=== PATIENT | male | born 1945 | race Caucasian/White ===

== ENCOUNTER → 2020-08-29 09:28 | Outpatient (BNVA) | payer OTHER, SELFPAY | PROVIDERS: PCP Family Medicine; Referring Provider Family Medicine; Visit Provider Anesthesiology Pain Medicine | DX: M25.511 Pain in right shoulder (principal); M25.512 Pain in left shoulder; M19.90 Unspecified osteoarthritis, unspecified site; S78.119A Complete traumatic amputation at level between unspecified hip and knee, initial encounter; X58.XXXA Exposure to other specified factors, initial encounter; Z79.891 Long term (current) use of opiate analgesic | CPT/HCPCS: 99205 ==

== ENCOUNTER → 2020-09-30 09:38 | Outpatient (BNVA) | payer OTHER, SELFPAY | PROVIDERS: PCP Family Medicine; Visit Provider Anesthesiology Pain Medicine | DX: M19.90 Unspecified osteoarthritis, unspecified site (principal); S78.119A Complete traumatic amputation at level between unspecified hip and knee, initial encounter; M54.9 Dorsalgia, unspecified; M25.511 Pain in right shoulder; M25.512 Pain in left shoulder; Z79.891 Long term (current) use of opiate analgesic | CPT/HCPCS: 99213 ==

== ENCOUNTER → 2020-11-05 10:18 | Outpatient (BNVA) | payer OTHER, SELFPAY | PROVIDERS: PCP Family Medicine; Visit Provider Anesthesiology Pain Medicine | DX: M19.90 Unspecified osteoarthritis, unspecified site (principal); S78.119A Complete traumatic amputation at level between unspecified hip and knee, initial encounter; X58.XXXA Exposure to other specified factors, initial encounter; M54.9 Dorsalgia, unspecified; M25.511 Pain in right shoulder; M25.512 Pain in left shoulder; Z79.899 Other long term (current) drug therapy; Z79.891 Long term (current) use of opiate analgesic | CPT/HCPCS: 99214 ==

== ENCOUNTER 2020-12-03 11:39 | Outpatient (CLI) | payer OTHER, SELFPAY | END 2020-12-03 11:40 | disposition home or self-care (01) | LOC: WOUND 11:41 | PROVIDERS: PCP Family Medicine; Visit Provider Thoracic Surgery (Cardiothoracic Vascular Surgery) | DX: E11.622 Type 2 diabetes mellitus with other skin ulcer (principal); L97.111 Non-pressure chronic ulcer of right thigh limited to breakdown of skin; L97.121 Non-pressure chronic ulcer of left thigh limited to breakdown of skin; I96 Gangrene, not elsewhere classified; Z89.611 Acquired absence of right leg above knee; Z87.891 Personal history of nicotine dependence | CPT/HCPCS: 97597; G0463 ==

== ENCOUNTER → 2020-12-05 09:33 | Outpatient (BNVA) | payer OTHER, SELFPAY | PROVIDERS: PCP Family Medicine; Visit Provider Anesthesiology Pain Medicine | DX: M19.90 Unspecified osteoarthritis, unspecified site (principal); S78.119A Complete traumatic amputation at level between unspecified hip and knee, initial encounter; X58.XXXA Exposure to other specified factors, initial encounter; M54.9 Dorsalgia, unspecified; M25.511 Pain in right shoulder; M25.512 Pain in left shoulder; Z79.899 Other long term (current) drug therapy; Z79.891 Long term (current) use of opiate analgesic | CPT/HCPCS: 99214 ==

== ENCOUNTER 2020-12-18 13:57 | Outpatient (CLI) | payer OTHER, SELFPAY | END 2020-12-18 13:58 | disposition home or self-care (01) | LOC: WOUND 13:57 | PROVIDERS: PCP Family Medicine; Visit Provider Thoracic Surgery (Cardiothoracic Vascular Surgery) | DX: E11.622 Type 2 diabetes mellitus with other skin ulcer (principal); L97.822 Non-pressure chronic ulcer of other part of left lower leg with fat layer exposed; Z89.612 Acquired absence of left leg above knee | CPT/HCPCS: 11042 ==

== ENCOUNTER 2020-12-25 13:18 | Outpatient (CLI) | payer OTHER, SELFPAY | END 2020-12-25 13:19 | disposition home or self-care (01) | LOC: WOUND 13:19 | PROVIDERS: PCP Family Medicine; Visit Provider Nurse Practitioner Family | DX: E11.622 Type 2 diabetes mellitus with other skin ulcer (principal); L97.822 Non-pressure chronic ulcer of other part of left lower leg with fat layer exposed; Z89.612 Acquired absence of left leg above knee | CPT/HCPCS: G0463 ==

== ENCOUNTER → 2021-01-02 10:30 | Outpatient (BNVA) | payer OTHER, SELFPAY | PROVIDERS: PCP Family Medicine; Visit Provider Anesthesiology Pain Medicine | DX: M19.90 Unspecified osteoarthritis, unspecified site (principal); S78.119A Complete traumatic amputation at level between unspecified hip and knee, initial encounter; M54.9 Dorsalgia, unspecified; M25.511 Pain in right shoulder; M25.512 Pain in left shoulder; X58.XXXA Exposure to other specified factors, initial encounter; Z79.899 Other long term (current) drug therapy; Z79.891 Long term (current) use of opiate analgesic | CPT/HCPCS: 99214 ==

== ENCOUNTER 2021-01-02 13:08 | Outpatient (CLI) | payer OTHER, SELFPAY | END 2021-01-02 13:09 | disposition home or self-care (01) | LOC: WOUND 13:09 | PROVIDERS: PCP Family Medicine; Visit Provider Thoracic Surgery (Cardiothoracic Vascular Surgery) | DX: E11.622 Type 2 diabetes mellitus with other skin ulcer (principal); L97.822 Non-pressure chronic ulcer of other part of left lower leg with fat layer exposed; Z89.612 Acquired absence of left leg above knee | CPT/HCPCS: 11042 ==

== ENCOUNTER 2021-01-09 13:14 | Outpatient (CLI) | payer OTHER, SELFPAY | END 2021-01-09 13:15 | disposition home or self-care (01) | LOC: WOUND 13:15 | PROVIDERS: PCP Family Medicine; Visit Provider Nurse Practitioner Family | DX: E11.622 Type 2 diabetes mellitus with other skin ulcer (principal); L97.821 Non-pressure chronic ulcer of other part of left lower leg limited to breakdown of skin; Z89.612 Acquired absence of left leg above knee | CPT/HCPCS: 11042 ==

== ENCOUNTER 2021-01-21 13:32 | Outpatient (CLI) | payer OTHER, SELFPAY | END 2021-01-21 13:33 | disposition home or self-care (01) | LOC: WOUND 13:33 | PROVIDERS: PCP Family Medicine; Visit Provider Thoracic Surgery (Cardiothoracic Vascular Surgery) | DX: E11.622 Type 2 diabetes mellitus with other skin ulcer (principal); L97.821 Non-pressure chronic ulcer of other part of left lower leg limited to breakdown of skin; Z89.612 Acquired absence of left leg above knee | CPT/HCPCS: 97597 ==

== ENCOUNTER 2021-01-28 13:36 | Outpatient (CLI) | payer OTHER, SELFPAY | END 2021-01-28 13:37 | disposition home or self-care (01) | LOC: WOUND 13:37 | PROVIDERS: PCP Family Medicine; Visit Provider Thoracic Surgery (Cardiothoracic Vascular Surgery) | DX: E11.621 Type 2 diabetes mellitus with foot ulcer (principal); L97.822 Non-pressure chronic ulcer of other part of left lower leg with fat layer exposed; Z89.612 Acquired absence of left leg above knee | CPT/HCPCS: 11042 ==

== ENCOUNTER → 2021-01-30 09:23 | Outpatient (BNVA) | payer OTHER, SELFPAY | PROVIDERS: PCP Family Medicine; Visit Provider Anesthesiology Pain Medicine | DX: M19.90 Unspecified osteoarthritis, unspecified site (principal); S78.119A Complete traumatic amputation at level between unspecified hip and knee, initial encounter; X58.XXXA Exposure to other specified factors, initial encounter; M54.9 Dorsalgia, unspecified; M25.511 Pain in right shoulder; M25.512 Pain in left shoulder; Z79.891 Long term (current) use of opiate analgesic | CPT/HCPCS: 99214 ==

== ENCOUNTER 2021-02-18 13:15 | Outpatient (CLI) | payer OTHER, SELFPAY | END 2021-02-18 13:16 | disposition home or self-care (01) | LOC: WOUND 13:15 | PROVIDERS: PCP Family Medicine; Visit Provider Thoracic Surgery (Cardiothoracic Vascular Surgery) | DX: E11.622 Type 2 diabetes mellitus with other skin ulcer (principal); L97.822 Non-pressure chronic ulcer of other part of left lower leg with fat layer exposed; Z89.612 Acquired absence of left leg above knee | CPT/HCPCS: 97597 ==

== ENCOUNTER 2021-02-25 12:56 | Outpatient (CLI) | payer OTHER, SELFPAY | END 2021-02-25 12:57 | disposition home or self-care (01) | LOC: WOUND 12:57 | PROVIDERS: PCP Family Medicine; Visit Provider Thoracic Surgery (Cardiothoracic Vascular Surgery) | DX: E11.622 Type 2 diabetes mellitus with other skin ulcer (principal); L97.822 Non-pressure chronic ulcer of other part of left lower leg with fat layer exposed; Z89.612 Acquired absence of left leg above knee | CPT/HCPCS: 97597 ==

== ENCOUNTER → 2021-02-27 10:59 | Outpatient (BNVA) | payer OTHER, SELFPAY | PROVIDERS: PCP Family Medicine; Visit Provider Anesthesiology Pain Medicine | DX: M19.90 Unspecified osteoarthritis, unspecified site (principal); S78.119A Complete traumatic amputation at level between unspecified hip and knee, initial encounter; M54.2 Cervicalgia; M54.9 Dorsalgia, unspecified; M25.511 Pain in right shoulder; M25.512 Pain in left shoulder; X58.XXXA Exposure to other specified factors, initial encounter; Z79.899 Other long term (current) drug therapy; Z79.891 Long term (current) use of opiate analgesic | CPT/HCPCS: 99214 ==

== ENCOUNTER 2021-03-11 13:09 | Outpatient (CLI) | payer OTHER, SELFPAY | END 2021-03-11 13:10 | disposition home or self-care (01) | LOC: WOUND 13:09 | PROVIDERS: PCP Family Medicine; Visit Provider Thoracic Surgery (Cardiothoracic Vascular Surgery) | DX: E11.622 Type 2 diabetes mellitus with other skin ulcer (principal); L97.822 Non-pressure chronic ulcer of other part of left lower leg with fat layer exposed; Z89.612 Acquired absence of left leg above knee | CPT/HCPCS: 97597 ==

== ENCOUNTER → 2021-03-26 09:04 | Outpatient (BNVA) | payer OTHER, SELFPAY | PROVIDERS: PCP Family Medicine; Visit Provider Anesthesiology Pain Medicine | DX: M54.2 Cervicalgia (principal); M25.511 Pain in right shoulder; M25.512 Pain in left shoulder; M54.9 Dorsalgia, unspecified; M19.90 Unspecified osteoarthritis, unspecified site; S78.119A Complete traumatic amputation at level between unspecified hip and knee, initial encounter; X58.XXXA Exposure to other specified factors, initial encounter; Z79.891 Long term (current) use of opiate analgesic | CPT/HCPCS: 99214 ==

== ENCOUNTER 2021-04-01 13:03 | Outpatient (CLI) | payer OTHER, SELFPAY | END 2021-04-01 13:04 | disposition home or self-care (01) | LOC: WOUND 13:04 | PROVIDERS: PCP Family Medicine; Visit Provider Thoracic Surgery (Cardiothoracic Vascular Surgery) | DX: E11.622 Type 2 diabetes mellitus with other skin ulcer (principal); L97.822 Non-pressure chronic ulcer of other part of left lower leg with fat layer exposed; Z89.612 Acquired absence of left leg above knee | CPT/HCPCS: 97597 ==

== ENCOUNTER 2021-04-16 13:09 | Outpatient (CLI) | payer OTHER, SELFPAY | END 2021-04-16 13:10 | disposition home or self-care (01) | LOC: WOUND 13:10 | PROVIDERS: PCP Family Medicine; Visit Provider Thoracic Surgery (Cardiothoracic Vascular Surgery) | DX: Z09 Encounter for follow-up examination after completed treatment for conditions other than malignant neoplasm (principal); Z87.891 Personal history of nicotine dependence | CPT/HCPCS: G0463 ==

== ENCOUNTER → 2021-04-23 10:06 | Outpatient (BNVA) | payer OTHER, SELFPAY | PROVIDERS: PCP Family Medicine; Visit Provider Anesthesiology Pain Medicine | DX: M54.2 Cervicalgia (principal); M25.511 Pain in right shoulder; M25.512 Pain in left shoulder; M19.90 Unspecified osteoarthritis, unspecified site; M79.601 Pain in right arm; M79.602 Pain in left arm; S78.119A Complete traumatic amputation at level between unspecified hip and knee, initial encounter; X58.XXXA Exposure to other specified factors, initial encounter; Z79.891 Long term (current) use of opiate analgesic | CPT/HCPCS: 99214 ==

== ENCOUNTER → 2021-05-21 10:11 | Outpatient (BNVA) | payer OTHER, SELFPAY | PROVIDERS: PCP Family Medicine; Visit Provider Anesthesiology Pain Medicine | DX: M54.2 Cervicalgia (principal); M25.511 Pain in right shoulder; M25.512 Pain in left shoulder; M19.90 Unspecified osteoarthritis, unspecified site; S78.119A Complete traumatic amputation at level between unspecified hip and knee, initial encounter; X58.XXXA Exposure to other specified factors, initial encounter; Z79.891 Long term (current) use of opiate analgesic | CPT/HCPCS: 99213; 99214 ==

== ENCOUNTER → 2021-06-18 10:31 | Outpatient (BNVA) | payer OTHER, SELFPAY | PROVIDERS: PCP Family Medicine; Visit Provider Anesthesiology Pain Medicine | DX: G89.29 Other chronic pain (principal); M19.90 Unspecified osteoarthritis, unspecified site; M54.2 Cervicalgia; S78.112A Complete traumatic amputation at level between left hip and knee, initial encounter; S78.111A Complete traumatic amputation at level between right hip and knee, initial encounter; X58.XXXA Exposure to other specified factors, initial encounter; M25.511 Pain in right shoulder; M25.512 Pain in left shoulder; M79.601 Pain in right arm; M79.602 Pain in left arm; Z79.891 Long term (current) use of opiate analgesic | CPT/HCPCS: 99214 ==

== ENCOUNTER 2021-06-21 10:21 | Emergency (ER) | payer OTHER, MEDICARE, SELFPAY ==
[2021-06-21 10:24] VITALS: BP 133/65; PULSE 62; RESP 18; TEMP 37.4; O2SAT 94
--- NOTE | 2021-06-21 10:36 | W.ED.SKABFB ---
HPI - Skin/Abscess/Foreign Bdy General: Chief complaint: Skin/Abscess/Foreign Body Stated complaint: RIGHT STUMP CELLULITIS Time Seen by Provider: 06/21/21 10:28 History of Present Illness: HPI narrative: 62-year-old male presents emergency room with complaint of irritation to his right femoral stump. 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 He sees wound clinic on a regular basis as well as a pain clinic. He has noticed some redness and inflammation at the anterior distal portion of that stump. He does not use any prosthetics. He has a significant breakdown of the skin on the left stump but he actually states the right stump is bothering him more. MD complaint: other Onset (ago): day(s) Location: LUE and RUE Severity: mild Quality: aching and dull Pain Consistency: intermittent Relieving factors: none Exacerbating factors: none Context: other (Previous bilateral proximal femur amputations secondary to trauma) Associated symptoms: Deny chills, cough, fever(s), itching, myalgias, nausea, rigidity, short of breath or vomiting Treatments prior to arrival: none Review of Systems Const: Denies: fever(s) or chills ENMT: Denies: throat pain, ear or mastoid pain, nasal discharge or nasal congestion Card: Denies: chest pain, edema, dyspnea on exertion or orthopnea Resp: Denies: dyspnea, productive cough or non-productive cough GI: Denies: nausea or vomiting : Denies: flank pain, dysuria, urinary frequency or urinary urgency Skin/Breast: Denies: rash or pruritus Physical Exam Const: COMMON NORMALS: no acute distress GENERAL APPEARANCE: cooperative and comfortable ORIENTATION/CONSCIOUSNESS: Yes awake, Yes oriented to person, Yes oriented to place and Yes oriented to time HENMT: COMMON NORMALS: normocephalic, atraumatic and hearing grossly normal bilaterally HEAD & SCALP: normocephalic and atraumatic Neck/C-Spine: COMMON NORMALS: no JVD Resp: COMMON NORMALS: normal respiratory effort, No retractions, No use of accessory muscles and clear to auscultation bilaterally AUSCULTATION: clear to auscultation bilaterally Cardio: COMMON NORMALS: no JVD, regular rate, regular rhythm and No murmurs present (Cardio) RATE: regular rate RHYTHM: regular rhythm GI: COMMON NORMALS: Soft to palpation and No hepatosplenomegaly present AUSCULTATION: Yes normoactive bowel sounds PALPATION: Yes Soft to palpation, No Tenderness to palpation present (GI), No Guarding due to palpation present (GI) and Yes No hepatosplenomegaly present Extremity: NARRATIVE EXTREMITY EXAM: Patient has significant abrasion approximately quarter sized on the anterior lateral portion of the left femoral stump there are some mild erythema and a small central eschar on the anterior portion of the right femoral stump with no drainage slight induration very increased warmth to the touch and erythema. Neuro: SENSORIUM/ORIENTATION: Yes oriented to person, Yes oriented to place and Yes oriented to time Skin: COMMON NORMALS: no rashes or lesions noted GENERAL SKIN EXAM: no rashes or lesions noted Course Vital Signs: Vital signs: Vital Signs Temperature 99.4 F 06/21/21 10:24 Pulse Rate 62 06/21/21 10:24 Respiratory Rate 18 06/21/21 10:24 Blood Pressure 133/65 06/21/21 10:24 Pulse Oximetry 94 06/21/21 10:24 MDM - Skin/Abscess/Foreign Bdy MDM Narrative: Medical decision making narrative: Labs reviewed discussed with patient. Will start mupirocin topical follow-up with primary care Lab Data: Labs: Lab Results 06/21/21 06/21/21 10:35 10:35 WBC 16.0 10^3/uL H 10 ^3/uL (4.0-10.0) RBC 4.58 10^6/uL 10^6 /uL (4.1-5.3) Hgb 12.6 g/dL g/dL (11.7-16.6) Hct 38.5 % L % (42.0-52.0) MCV 84.1 fl fl (80-94) MCH 27.5 pg L pg (28.0-34.0) MCHC 32.7 g/dL g/dL (30.0-36.0) RDW 14.6 % % (12.1-15.1) Plt Count 228 10^3/cmm 10^3 /cmm (130-400) MPV 9.3 fL fL (7.4-10.4) Neut % (Auto) 75.9 % % Lymph % (Auto) 10.1 % % [place] % (Auto) 11.8 % % Eos % (Auto) 1.3 % % Baso % (Auto) 0.6 % % Neut # (Auto) 12.10 10^3/uL H 1 0^3/uL (1.8-7.7) Lymph # (Auto) 1.6 10^3/uL 10^3/ uL (0.8-4.8) [place] # (Auto) 1.9 10^3/uL H 10^ 3/uL (0.2-0.9) Eos # (Auto) 0.2 10^3/uL 10^3/ uL (0.0-0.8) Baso # (Auto) 0.1 10^3/uL 10^3/ uL (0.0-0.1) Nucleated RBC % (a uto) 0 % % Nucleated RBCs # 0.0 /100WBC /100W BC Sodium 131 mmol/L L mmol /L (136-145) Potassium 4.4 mmol/L mmol/L (3.5-5.1) Chloride 95 mmol/L L mmol/ L (98-107) Carbon Dioxide 26 mmol/L mmol/L (22-29) Anion Gap 14.4 (5-19) BUN 21 mg/dL mg/dL (8-23) Creatinine 0.6 mg/dL L mg/dL (0.7-1.2) GFR Calculation Not Reportable Glucose 140 mg/dL H mg/dL (65-115) Calculated Osmolal ity 277 mOsm/kg L mOs m/kg (285-295) Calcium 9.4 mg/dL mg/dL (8.5-10.5) Total Bilirubin 0.6 mg/dL mg/dL (0.15-1.2) AST 12 U/L U/L (0-40) ALT 8 U/L U/L (0-41) Alkaline Phosphata se 67 IU/L IU/L (40-130) Total Protein 7.5 g/dL g/dL (6.6-8.7) Albumin 3.9 g/dL g/dL (3.5-5.2) Globulin 3.6 g/dL g/dL (1.3-4.6) Discharge Plan Discharge Patient Disposition: Home Clinical Impression: Cellulitis Condition: Stable Prescriptions: New mupirocin 2 % ointment 1 applic topical DAILY Qty: 22 RF: 0 No Action meloxicam 15 mg tablet 15 mg PO DAILY PRNRF: 0 hydrochlorothiazide 12.5 mg tablet 12.5 mg PO DAILY RF: 0 atenolol 50 mg tablet 50 mg PO DAILY RF: 0 isosorbide mononitrate 60 mg tablet extended release 24 hr 60 mg PO DAILY RF: 0 simvastatin 80 mg tablet 80 mg PO DAILY RF: 0 lisinopril 10 mg tablet 10 mg PO DAILY RF: 0 amlodipine 10 mg tablet 10 mg PO DAILY RF: 0 metformin 500 mg tablet 500 mg PO DAILY RF: 0 clopidogrel 75 mg tablet 75 mg PO DAILY RF: 0 cholecalciferol (vitamin D3) 50 mcg (2,000 unit) capsule 50 mcg PO DAILY RF: 0 aspirin 325 mg tablet,delayed release (DR/EC) 325 mg PO DAILY RF: 0 dexamethasone 1.5 mg (21 tabs) tablets,dose pack See Rx Instructions PO PER PKG DIR Qty: 21 RF: 0 hydrocodone-acetaminophen 10-325 mg tablet 1 tab PO TID PRN (Reason: chronic pain ) 30 Days Qty: 90 RF: 0 Discharge Orders: Discharge ED (Routine); Ordered 06/21/21 Ordered By: Chicho Garsia Referrals: Linda Escalante MD [Primary Care Provider] - Discharge Diet: Usual diet Discharge Activity: Increase activity as tolerated Patient Instructions: Opioid Safety Activity Restrictions/Additional Instructions: Change dressing on wounds daily Coding Level of Care Code ED Host/Hostess Head for Speedyg Fwd Exam Detailed
[2021-06-21 10:47] LABS: Basophils # 0.1 10^3/uL (0.0-0.1); Basophils % 0.6 %; Eosinophils # 0.2 10^3/uL (0.0-0.8); Eosinophils % 1.3 %; Hematocrit 38.5 % (42.0-52.0); Hemoglobin 12.6 g/dL (11.7-16.6); Lymphocytes # 1.6 10^3/uL (0.8-4.8); Lymphocytes % 10.1 %; Mean Corpuscular HGB Conc 32.7 g/dL (30.0-36.0); Mean Corpuscular Hemoglobin 27.5 pg (28.0-34.0); Mean Corpuscular Volume 84.1 fl (80-94); Mean Platelet Volume 9.3 fL (7.4-10.4); Monocytes # 1.9 10^3/uL (0.2-0.9); Monocytes % 11.8 %; Neutrophils % 75.9 %; Nucleated Red Blood Cells % 0 %; Platelet Count 228 10^3/cmm (130-400); Red Blood Count 4.58 10^6/uL (4.1-5.3); Red Cell Distribution Width 14.6 % (12.1-15.1)
[2021-06-21 11:05] LABS: Alanine Aminotransferase 8 U/L (0-41); Albumin Level 3.9 g/dL (3.5-5.2); Alkaline Phosphatase 67 IU/L (40-130); Anion Gap 14.4 (5-19); Aspartate Amino Transferase 12 U/L (0-40); Blood Urea Nitrogen 21 mg/dL (8-23); Calcium 9.4 mg/dL (8.5-10.5); Carbon Dioxide 26 mmol/L (22-29); Chloride 95 mmol/L (98-107); Globulin 3.6 g/dL (1.3-4.6); Glucose 140 mg/dL (65-115); Osmolality Calculated 277 mOsm/kg (285-295); Potassium 4.4 mmol/L (3.5-5.1); Sodium 131 mmol/L (136-145); Total Bilirubin 0.6 mg/dL (0.15-1.2); Total Protein 7.5 g/dL (6.6-8.7)
[2021-06-21] MEDS: tetanus-dipt-pertussis 0.5 mL SDV IM (11:14)
[2021-06-21] MEDS: levoFLOXacin 500 mg Tablet PO (12:43)
== END 2021-06-21 15:45 | disposition home or self-care (01) ==
PROVIDERS: Emergency Provider Family Medicine; PCP Family Medicine
DX: L03.115 Cellulitis of right lower limb (principal); Z79.82 Long term (current) use of aspirin; Z79.84 Long term (current) use of oral hypoglycemic drugs; Z79.02 Long term (current) use of antithrombotics/antiplatelets; Z23 Encounter for immunization; Z89.612 Acquired absence of left leg above knee; Z89.611 Acquired absence of right leg above knee; S80.812A Abrasion, left lower leg, initial encounter; X58.XXXA Exposure to other specified factors, initial encounter
CPT/HCPCS: 80053; 85025; 87040; 90471; 90715; 99283

== ENCOUNTER → 2021-07-16 10:24 | Outpatient (BNVA) | payer OTHER, SELFPAY | PROVIDERS: PCP Family Medicine; Visit Provider Anesthesiology Pain Medicine | DX: G89.29 Other chronic pain (principal); M54.50 Low back pain, unspecified; M54.2 Cervicalgia; M25.511 Pain in right shoulder; M25.512 Pain in left shoulder; M19.90 Unspecified osteoarthritis, unspecified site; S78.119A Complete traumatic amputation at level between unspecified hip and knee, initial encounter; W40.8XXA Explosion of other specified explosive materials, initial encounter; Z79.891 Long term (current) use of opiate analgesic | CPT/HCPCS: 99213 ==

== ENCOUNTER → 2021-08-13 10:20 | Outpatient (BNVA) | payer OTHER, SELFPAY | PROVIDERS: PCP Family Medicine; Visit Provider Anesthesiology Pain Medicine | DX: G89.29 Other chronic pain (principal); M54.2 Cervicalgia; M19.90 Unspecified osteoarthritis, unspecified site; S78.119A Complete traumatic amputation at level between unspecified hip and knee, initial encounter; W40.8XXA Explosion of other specified explosive materials, initial encounter; M25.511 Pain in right shoulder; M25.512 Pain in left shoulder; Z79.891 Long term (current) use of opiate analgesic | CPT/HCPCS: 99214 ==

== ENCOUNTER → 2021-09-15 10:00 | Outpatient (BNVA) | payer OTHER, SELFPAY | PROVIDERS: PCP Family Medicine; Visit Provider Anesthesiology Pain Medicine | DX: M54.2 Cervicalgia (principal); M19.90 Unspecified osteoarthritis, unspecified site; S78.111A Complete traumatic amputation at level between right hip and knee, initial encounter; S78.112A Complete traumatic amputation at level between left hip and knee, initial encounter; M25.511 Pain in right shoulder; M25.512 Pain in left shoulder; X58.XXXA Exposure to other specified factors, initial encounter; Z79.891 Long term (current) use of opiate analgesic | CPT/HCPCS: 99214 ==

== ENCOUNTER → 2021-10-13 09:58 | Outpatient (BNVA) | payer OTHER, SELFPAY | PROVIDERS: PCP Family Medicine; Visit Provider Anesthesiology Pain Medicine | DX: M54.2 Cervicalgia (principal); M19.90 Unspecified osteoarthritis, unspecified site; S78.119A Complete traumatic amputation at level between unspecified hip and knee, initial encounter; M25.511 Pain in right shoulder; M25.512 Pain in left shoulder; Z79.899 Other long term (current) drug therapy; Z79.891 Long term (current) use of opiate analgesic | CPT/HCPCS: 99213 ==

== ENCOUNTER → 2021-11-12 09:27 | Outpatient (BNVA) | payer OTHER, SELFPAY | PROVIDERS: PCP Family Medicine; Visit Provider Anesthesiology Pain Medicine | DX: M54.50 Low back pain, unspecified (principal); M19.90 Unspecified osteoarthritis, unspecified site; S78.119A Complete traumatic amputation at level between unspecified hip and knee, initial encounter; M54.2 Cervicalgia; M25.511 Pain in right shoulder; M25.512 Pain in left shoulder; M79.601 Pain in right arm; M79.602 Pain in left arm; X58.XXXA Exposure to other specified factors, initial encounter; Z79.891 Long term (current) use of opiate analgesic; Z79.899 Other long term (current) drug therapy | CPT/HCPCS: 99214 ==

== ENCOUNTER → 2021-12-10 09:43 | Outpatient (BNVA) | payer OTHER, SELFPAY | PROVIDERS: PCP Family Medicine; Visit Provider Anesthesiology Pain Medicine | DX: M54.50 Low back pain, unspecified (principal); M54.2 Cervicalgia; M19.90 Unspecified osteoarthritis, unspecified site; S78.111A Complete traumatic amputation at level between right hip and knee, initial encounter; S78.112A Complete traumatic amputation at level between left hip and knee, initial encounter; M25.511 Pain in right shoulder; M25.512 Pain in left shoulder; W40.8XXA Explosion of other specified explosive materials, initial encounter; Z79.899 Other long term (current) drug therapy; Z79.891 Long term (current) use of opiate analgesic; Z87.891 Personal history of nicotine dependence | CPT/HCPCS: 99214 ==

== ENCOUNTER → 2022-01-07 09:51 | Outpatient (BNVA) | payer OTHER, SELFPAY | PROVIDERS: PCP Family Medicine; Visit Provider Anesthesiology Pain Medicine | DX: M19.90 Unspecified osteoarthritis, unspecified site (principal); S78.119A Complete traumatic amputation at level between unspecified hip and knee, initial encounter; M54.2 Cervicalgia; M25.511 Pain in right shoulder; M25.512 Pain in left shoulder; M79.604 Pain in right leg; M79.605 Pain in left leg; W40.8XXA Explosion of other specified explosive materials, initial encounter; Z79.899 Other long term (current) drug therapy; Z79.891 Long term (current) use of opiate analgesic; Z87.891 Personal history of nicotine dependence | CPT/HCPCS: 99214 ==

== ENCOUNTER → 2022-01-29 10:27 | Outpatient (BNVA) | payer MEDICARE, OTHER, SELFPAY | PROVIDERS: PCP Family Medicine; Visit Provider Nurse Practitioner | DX: R30.0 Dysuria (principal) | CPT/HCPCS: 81000 ==

== ENCOUNTER → 2022-02-04 09:55 | Outpatient (BNVA) | payer MEDICARE, OTHER, SELFPAY | PROVIDERS: PCP Family Medicine; Visit Provider Anesthesiology Pain Medicine | DX: M54.9 Dorsalgia, unspecified (principal); M54.2 Cervicalgia; M19.90 Unspecified osteoarthritis, unspecified site; S78.119A Complete traumatic amputation at level between unspecified hip and knee, initial encounter; M25.511 Pain in right shoulder; M25.512 Pain in left shoulder; M79.601 Pain in right arm; M79.602 Pain in left arm; Z79.899 Other long term (current) drug therapy; Z87.891 Personal history of nicotine dependence; Z79.891 Long term (current) use of opiate analgesic | CPT/HCPCS: 99214 ==

== ENCOUNTER → 2022-03-03 10:18 | Outpatient (BNVA) | payer OTHER, SELFPAY | PROVIDERS: PCP Family Medicine; Visit Provider Anesthesiology Pain Medicine | DX: M25.511 Pain in right shoulder (principal); M25.512 Pain in left shoulder; M54.2 Cervicalgia; M19.90 Unspecified osteoarthritis, unspecified site; M79.601 Pain in right arm; M79.602 Pain in left arm; S78.119A Complete traumatic amputation at level between unspecified hip and knee, initial encounter; Z87.891 Personal history of nicotine dependence; Z79.891 Long term (current) use of opiate analgesic; Z79.899 Other long term (current) drug therapy; Y93.9 Activity, unspecified | CPT/HCPCS: 99214 ==

== ENCOUNTER → 2022-03-25 08:36 | Outpatient (BNVA) | payer OTHER, SELFPAY | PROVIDERS: PCP Family Medicine; Visit Provider Anesthesiology Pain Medicine | DX: M25.511 Pain in right shoulder (principal); M25.512 Pain in left shoulder; M79.601 Pain in right arm; M79.602 Pain in left arm; M54.50 Low back pain, unspecified; M54.2 Cervicalgia; M19.90 Unspecified osteoarthritis, unspecified site; S78.119A Complete traumatic amputation at level between unspecified hip and knee, initial encounter; Z87.891 Personal history of nicotine dependence; Z79.899 Other long term (current) drug therapy; Z79.891 Long term (current) use of opiate analgesic; Y93.9 Activity, unspecified | CPT/HCPCS: 99214 ==

== ENCOUNTER → 2022-04-07 13:57 | Outpatient (BNVA) | payer OTHER, SELFPAY | PROVIDERS: PCP Family Medicine; Referring Provider Family Medicine; Visit Provider Nurse Practitioner Family | DX: N40.1 Benign prostatic hyperplasia with lower urinary tract symptoms (principal); N13.8 Other obstructive and reflux uropathy; N39.0 Urinary tract infection, site not specified | CPT/HCPCS: 51798; 81003; 87077; 87086; 99203 ==

== ENCOUNTER → 2022-04-16 09:20 | Outpatient (BNVA) | payer OTHER, SELFPAY | PROVIDERS: PCP Family Medicine; Visit Provider Anesthesiology Pain Medicine | DX: M54.9 Dorsalgia, unspecified (principal); M54.2 Cervicalgia; M19.90 Unspecified osteoarthritis, unspecified site; M25.511 Pain in right shoulder; M25.512 Pain in left shoulder; S78.111A Complete traumatic amputation at level between right hip and knee, initial encounter; S78.112A Complete traumatic amputation at level between left hip and knee, initial encounter; Z87.891 Personal history of nicotine dependence; Z79.891 Long term (current) use of opiate analgesic; Z79.899 Other long term (current) drug therapy; X58.XXXA Exposure to other specified factors, initial encounter | CPT/HCPCS: 99214 ==

== ENCOUNTER → 2022-05-14 10:12 | Outpatient (BNVA) | payer OTHER, SELFPAY | PROVIDERS: PCP Family Medicine; Referring Provider Anesthesiology Pain Medicine; Visit Provider Anesthesiology Pain Medicine | DX: M54.9 Dorsalgia, unspecified (principal); M54.2 Cervicalgia; M25.512 Pain in left shoulder; M25.511 Pain in right shoulder; M79.601 Pain in right arm; M79.602 Pain in left arm; S78.119A Complete traumatic amputation at level between unspecified hip and knee, initial encounter; W40.8XXA Explosion of other specified explosive materials, initial encounter; M19.90 Unspecified osteoarthritis, unspecified site; Z87.891 Personal history of nicotine dependence; Z79.891 Long term (current) use of opiate analgesic | CPT/HCPCS: 99214 ==

== ENCOUNTER → 2022-05-22 10:47 | Outpatient (BNVA) | payer MEDICARE, OTHER, SELFPAY | PROVIDERS: PCP Family Medicine; Visit Provider Urology | DX: N39.0 Urinary tract infection, site not specified (principal); N40.1 Benign prostatic hyperplasia with lower urinary tract symptoms; N13.8 Other obstructive and reflux uropathy | CPT/HCPCS: 51741; 51798; 81003; 99213 ==

== ENCOUNTER 2022-05-25 12:53 | Emergency (ER) | payer OTHER, SELFPAY ==
[2022-05-25 12:58] VITALS: BP 183/83; PULSE 56; RESP 18; TEMP 36.5; O2SAT 95; BMI 27.8
[2022-05-25 14:13] LABS: Basophils % 0.7 %; Eosinophils # 0.2 10^3/uL (0.0-0.8); Eosinophils % 4.4 %; Hematocrit 33.7 % (42.0-52.0); Hemoglobin 10.7 g/dL (11.7-16.6); Lymphocytes # 1.1 10^3/uL (0.8-4.8); Mean Corpuscular HGB Conc 31.8 g/dL (30.0-36.0); Mean Corpuscular Volume 81.8 fl (80-94); Monocytes # 0.8 10^3/uL (0.2-0.9); Monocytes % 18.5 %; Neutrophils # 2.12 10^3/uL (1.8-7.7); Neutrophils % 49.7 %; Nucleated Red Blood Cells % 0 %; Platelet Count 236 10^3/cmm (130-400); Red Blood Count 4.12 10^6/uL (4.1-5.3); Red Cell Distribution Width 14.9 % (12.1-15.1); White Blood Count 4.3 10^3/uL (4.0-10.0)
[2022-05-25 14:35] LABS: Alanine Aminotransferase 10 U/L (0-41); Albumin Level 3.8 g/dL (3.5-5.2); Alkaline Phosphatase 67 U/L (40-130); Anion Gap 17.5 (5-19); Aspartate Amino Transferase 20 U/L (0-40); Blood Urea Nitrogen 29 mg/dL (8-23); Carbon Dioxide 21 mmol/L (22-29); Chloride 96 mmol/L (98-107); Globulin 3.6 g/dL (1.3-4.6); Glucose 131 mg/dL (65-115); Osmolality Calculated 278 mOsm/kg (285-295); Potassium 4.5 mmol/L (3.5-5.1); Sodium 130 mmol/L (136-145); Total Bilirubin 0.2 mg/dL (0.15-1.2); Total Protein 7.4 g/dL (6.6-8.7)
--- NOTE | 2022-05-25 14:57 | CT_ITS ---
WS: [id number] CT HEAD NONCONTRAST HISTORY: transient confusion/fall TECHNIQUE: Contiguous axial imaging performed through the brain in 2.5 mm imaging. Bone and soft tiss ue windows. Sagittal and coronal reformats reviewed. All CT scans at [facility] use at least one of these dose optimization techniques: automated exposure control; mA and/or kV adjustment per pa tient size (includes targeted exams where dose is matched to clinical indication); or iterative recon struction. DLP: 1137.88 mGy.cm COMPARISON: 04/15/2010 No acute intracranial hemorrhage, midline shift or mass effect. Mild atrophy and small vessel ischemic disease. No sulcal effacement. Ventricles: Normal size with no hydrocephalus. No inferior displacement of cerebellar tonsils. Paranasal sinuses: Mild ethmoid and sphenoid sinus disease. No air-fluid levels. Mastoid air cells: Well pneumatized. Calvarium and scalp: Skull is intact with no soft tissue edema or swelling. CT/CT head wo con* [id number] IMPRESSION: 1. No acute intracranial hemorrhage or edema. 2. Mild atrophy and small vessel ischemic disease.
[2022-05-25 14:59] VITALS: BP 123/56; PULSE 53; RESP 25; O2SAT 96
--- NOTE | 2022-05-25 15:07 | ECG_ITS ---
[facility] Test Date: 2022-05-25 Pat Name: Yusuf Tan Department: Room: Gender: Male Senior Abap Developer: : 1945 Requested By: Dilan Bryant Order Number: [id number] Anderson MD: Melquiades Gloria M.D. Measurements Intervals [place] Rate: 51 P: 55 [place]: 233 QRS: -49 QRSD: 141 T: 15 QT: 469 QTc: 433 Interpretive Statements SINUS BRADYCARDIA WITH FIRST DEGREE AV BLOCK RIGHT BUNDLE BRANCH BLOCK [120+ ms QRS DURATION, UPRIGHT V1, 40+ ms S IN I/aVL/V4/V5/V6] LEFT ANTERIOR FASCICULAR BLOCK [QRS AXIS <= -45, QR IN I, RS IN II] POSSIBLE ANTERIOR MYOCARDIAL INFARCTION , OF INDETERMINATE AGE [30 ms Q WAVE IN V3/V4, OR R < 0.2 mV IN V4] No previous ECG available for comparison Electronically Signed On 05-25-2022 18:07:48 CDT by Melquiades Gloria M.D. [email or web address] [facility] state hospitalNetacclevel[facility].[employer]/store/OM/[id number]
--- NOTE | 2022-05-25 15:35 | ED_ITS ---
HPI - General Adult General: Chief complaint: Upper Respiratory Infection Stated complaint: fever/congestion/ams Time Seen by Provider: 05/25/22 14:33 History of Present Illness: Patient is a 77-year-old male with a history of bilateral AKA, hypertension, CAD, diabetes who presents the emergency room with cough and transient episode of confusion. Since Wednesday, patient has had in termittent worsening productive green phlegm and shortness of breath. On Wednesday, patient was transiently noted to be confused in the bathroom. Patient continues to have ongoing cough. Family became concerned called the [facility] who recommended patient come to the emergency room for further evaluation. Patient was also fell on Wednesday. Patient currently denies any chest pain, shortness of palpitation, nausea/vomiting, diarrhea melena/hematochezia. No loss of taste, sore throat or rhinorrhea. Onset:5 days ago Duration:5 days Location:home Severity:moderate Associated symptoms: Deny chest pain, dyspnea, nausea, rash, palpitations or vomiting Review of Systems Const: Denies: fever(s) or chills Eyes: Denies: change in vision ENMT: Denies: mouth pain Card: Denies: chest pain or palpitations Resp: Denies: dyspnea or non-productive cough GI: Denies: abdominal pain, nausea, vomiting or diarrhea : Denies: dysuria Musc: Denies: extremity pain Skin/Breast: Denies: rash or new lesions Neuro: Reports: other (+transient confusion on Wednesday); Denies: weakness in extremities Psych: Reports: other (Normal mood) David/Lymph: Denies: easy bruising PFSH ED PFSH: Medical History Amputation above knee CAD (coronary artery disease) Diabetes mellitus with hyperglycemia Essential hypertension Osteoarthritis Recurrent UTI Surgical History History of amputation of both lower extremities History of cataract extraction Left eye History of eye disorder Right blind History of heart artery stent 3-4 stents Family History Other CAD (coronary artery disease) Denies family history of Diabetes Cancer Stroke Social History Smoking and tobacco status: former smoker (50 YRS AGO) Second hand smoke exposure: No Smoking risk assessment/counseling performed?: No Alcohol intake: never Desire information about alcohol rehabilitation?: No Counseling given: No Desire information about substance/drug rehabilitation?: No Counseling given: No Adopted: No Caregiver/support person: No Lives independently: Yes Household members: spouse Housing: House Marital status: service: Yes branch: [email or web address] Current occupational status: retired and disabled History of recent travel: No Current gender identity: Male Physical Exam Const: COMMON NORMALS: alert HENMT: COMMON NORMALS: atraumatic HEAD & SCALP: atraumatic MOUTH: moist mucous membranes not abnormal Eye: COMMON NORMALS: EOMs intact bilaterally and conjunctivae normal CONJUNCTIVA: Yes conjunctivae normal Neck/C-Spine: COMMON NORMALS: full ROM and supple Resp: COMMON NORMALS: normal respiratory effort and clear to auscultation bilaterally AUSCULTATION: clear to auscultation bilaterally Cardio: COMMON NORMALS: regular rate RATE: regular rate GI: COMMON NORMALS: Soft to palpation and non-tender PALPATION: Yes Soft to palpation Extremity: COMMON NORMALS: full ROM Neuro: SENSORIUM/ORIENTATION: Yes alert MOTOR EXAM: No Abnormal motor strength present and Other motor observations present (no focal motor deficits) Psych: COMMON NORMALS: speech normal SPEECH: Yes normal speech MOOD & AFFECT: Yes euthymic mood Course Vital Signs: Vital signs: Vital Signs Temperature 98.4 F 05/25/22 20:35 Pulse Rate 52 L 05/25/22 20:35 Respiratory Rate 23 H 05/25/22 20:35 Blood Pressure 118/67 05/25/22 20:35 Pulse Oximetry 95 05/25/22 20:35 Oxygen Delivery Me thod 05/25/22 18:59 [facility] - General Adult Medical Decision Making Patient is a 77-year-old male with a history of bilateral AKA, hypertension, CAD, diabetes who presents the emergency room with cough and transient confusion. Exam, patient is hemodynamically stable. Lungs appears to be clear bilaterally. Patient has no signs of increased work of breathing. White count 4.3 today. Hemoglobin 10.7. Sodium 132. Lab within normal limit. X-ray chest negative for any acute findings. Patient is COVID-positive today. CT head is negative for any acute finding. Troponin x2 with delta less than 5 her EKG is nonischemic. Patient has been to tolerate p.o. has no complaints of respiratory distress or pain. Rx paxlovid for covid Disposition: Discharge. Patient counseled regarding diagnostic impression, treatment plan. Patient given ED strict return precautions to return for continuation, worsening, or development of new symptoms. Instructed to f/u w/ PCP regarding symptoms today. Patient verbalized understanding. Lab Data : 05/25/22 14:05 05/25/22 16:[address] 05/25/22 14:57 IMPRESSION: 1. No acute intracranial hemorrhage or edema. 2. Mild atrophy and small vessel ischemic disease. Chest X-Ray 05/25/22 17:59 IMPRESSION: No acute chest abnormality. Laboratory Results WBC 4.3 10^3/uL (4.0-10.0) 05/25/22 14:05 RBC 4.12 10^6/uL (4.1-5.3) 05/25/22 14:05 Hgb 10.7 g/dL (11.7-16.6) L 05/25/22 14:05 Hct 33.7 % (42.0-52.0) L 05/25/22 14:05 MCV 81.8 fl (80-94) 05/25/22 14:05 MCH 26.0 pg (28.0-34.0) L 05/25/22 14:05 MCHC 31.8 g/dL (30.0-36.0) 05/25/22 14:05 RDW 14.9 % (12.1-15.1) 05/25/22 14:05 Plt Count 236 10^3/cmm (130-400) 05/25/22 14:05 MPV 9.0 fL (7.4-10.4) 05/25/22 14:05 Neut % (Auto) 49.7 % 05/25/22 14:05 Lymph % (Auto) 26.0 % 05/25/22 14:05 [place] % (Auto) 18.5 % 05/25/22 14:05 Eos % (Auto) 4.4 % 05/25/22 14:05 Baso % (Auto) 0.7 % 05/25/22 14:05 Neut # (Auto) 2.12 10^3/uL (1.8-7.7) 05/25/22 14:05 Lymph # (Auto) 1.1 10^3/uL (0.8-4.8) 05/25/22 14:05 [place] # (Auto) 0.8 10^3/uL (0.2-0.9) 05/25/22 14:05 Eos # (Auto) 0.2 10^3/uL (0.0-0.8) 05/25/22 14:05 Baso # (Auto) 0.0 10^3/uL (0.0-0.1) 05/25/22 14:05 Nucleated RBC % (auto) 0 % 05/25/22 14:05 Nucleated RBCs # 0.0 /100WBC 05/25/22 14:05 Sodium 132 mmol/L (136-145) L 05/25/22 16:57 Potassium 4.6 mmol/L (3.5-5.1) 05/25/22 16:57 Chloride 98 mmol/L (98-107) 05/25/22 16:57 Carbon Dioxide 24 mmol/L (22-29) 05/25/22 16:57 Anion Gap 14.6 (5-19) 05/25/22 16:57 BUN 30 mg/dL (8-23) H 05/25/22 16:57 Creatinine 0.9 mg/dL (0.7-1.2) 05/25/22 16:57 GFR Calculation Not Reportable 05/25/22 16:57 Glucose 115 mg/dL (65-115) 05/25/22 16:57 Calculated Osmolality 281 mOsm/kg (285-295) L 05/25/22 16:57 Lactic Acid 2.0 mmol/L (0.5-2.2) 05/25/22 14:05 Calcium 9.0 mg/dL (8.5-10.5) 05/25/22 16:57 Total Bilirubin 0.2 mg/dL (0.15-1.2) 05/25/22 14:05 AST 20 U/L (0-40) 05/25/22 14:05 ALT 10 U/L (0-41) 05/25/22 14:05 Alkaline Phosphatase 67 U/L (40-130) 05/25/22 14:05 Troponin T Baseline 49 ng/L (0-15) H 05/25/22 16:57 Troponin T 120 Minute 43.77 ng/L (0-15) H 05/25/22 19:36 Delta Troponin T -5.23 ABS# (0-10) L 05/25/22 19:36 Total Protein 7.4 g/dL (6.6-8.7) 05/25/22 14:05 Albumin 3.8 g/dL (3.5-5.2) 05/25/22 14:05 Globulin 3.6 g/dL (1.3-4.6) 05/25/22 14:05 Urine Color Yellow (Yellow) 05/25/22 16:50 Urine Appearance Clear (CLEAR) 05/25/22 16:50 Urine pH 5 (5-7) 05/25/22 16:50 Ur Specific [place] 1.025 (1.005-1.030) 05/25/22 16:50 Urine Protein Neg (Negative) 05/25/22 16:50 Urine Glucose (UA) Norm (Normal) 05/25/22 16:50 Urine Ketones Negative (Negative) 05/25/22 16:50 Urine Blood Neg (Negative) 05/25/22 16:50 Urine Nitrate Negative (Negative) 05/25/22 16:50 Urine Bilirubin Neg (Negative) 05/25/22 16:50 Urine Urobilinogen Norm mg/dL (Negative) 05/25/22 16:50 Ur Leukocyte Esterase Trace (Negative) H 05/25/22 16:50 Urine RBC None /hpf (0-2) 05/25/22 16:50 Urine WBC 5-10 /hpf (0-5) H 05/25/22 16:50 Ur Squamous Epith Cells 5-10 /hpf (0-5) H 05/25/22 16:50 Amorphous Sediment Not Reportable 05/25/22 16:50 Urine Bacteria 1+ /hpf (NONE) H 05/25/22 16:50 Nasal Influ A H1 2009 PCR Not detected (NOT DETECT) 05/25/22 15:00 Coronavirus 229E (PCR) Not detected (NOT DETECT) 05/25/22 15:00 Influenza A (H1) PCR Not detected (NOT DETECT) 05/25/22 15:00 Influenza A (H3) PCR Not detected (NOT DETECT) 05/25/22 15:00 Influenza Type A (PCR) Not detected (NOT DETECT) 05/25/22 15:00 Influenza Type B (PCR) Not detected (NOT DETECT) 05/25/22 15:00 SARS-CoV-2 (PCR) Detected (NOT DETECT) A 05/25/22 15:00 Imaging Data Other Imaging: Radiologist's impression: [facility] [address] [place] [address] CT Scan Report Signed Patient: Yusuf Tan Unit #: [id number] : 1945 Age/Sex: 77 / M ADM Date: 05/25/22 Loc: ER Room/Bed: Attending Dr: Ordering Provider/Ordering MD: Dilan Bryant MD Date of Service: 05/25/22 Procedure(s): CT head wo con* [id number] Accession Number(s): [id number] Report Number: [id number] WS: [id number] CT HEAD NONCONTRAST HISTORY: transient confusion/fall TECHNIQUE: Contiguous axial imaging performed through the brain in 2.5 mm imaging. Bone and soft tissue windows. Sagittal and coronal reformats reviewed.? All CT scans at [facility] use at least one of these dose optimization techniques: automated exposure control; mA and/or kV adjustment per patient size (includes targeted exams where dose is matched to clinical indication); or iterative reconstruction. DLP: 1137.88 mGy.cm COMPARISON: 04/15/2010 No acute intracranial hemorrhage, midline shift or mass effect. Mild atrophy and small vessel ischemic disease. No sulcal effacement. Ventricles:? Normal size with no hydrocephalus. No inferior displacement of cerebellar tonsils. Paranasal sinuses: Mild ethmoid and sphenoid sinus disease. No air-fluid levels. Mastoid air cells: Well pneumatized. Calvarium and scalp: Skull is intact with no soft tissue edema or swelling. CT/CT head wo con* [id number] IMPRESSION: ? 1.? No acute intracranial hemorrhage or edema. 2.? Mild atrophy and small vessel ischemic disease. ? Dictated By: Ban Gutierrez DO Signed By: Ban Gutierrez DO Signed Date/Time: 05/25/22 1532 DD/ 1529 Discharge Plan Discharge Patient Disposition: Home Clinical Impression: Cough, Dyspnea, COVID Condition: Stable Prescriptions: New Paxlovid (EUA) 150 mg x 2- 100 mg tablet See Rx Instructions .ROUTE .COMPLEX Qty: 30 0RF Rx Instructions: take TWO 150 mg tablets of nirmatrelvir with ONE 100 mg tablet of ritonavir twice daily for 5 days No Action meloxicam 15 mg tablet 15 mg PO DAILY PRN (Reason: Pain) atenolol 50 mg tablet 50 mg PO QAM isosorbide mononitrate 60 mg tablet extended release 24 hr 60 mg PO QAM simvastatin 80 mg tablet 40 mg PO BEDTIME amlodipine 10 mg tablet 10 mg PO QAM clopidogrel 75 mg tablet 75 mg PO QAM cholecalciferol (vitamin D3) 50 mcg (2,000 unit) capsule 50 mcg PO QAM aspirin 325 mg tablet,delayed release (DR/EC) 325 mg PO QAM hydrocodone-acetaminophen 10-325 mg tablet 1 tab PO TID PRN (Reason: chronic pain ) 30 Days Qty: 90 0RF Rx Instructions: may fill 30 days after previous refill. lorazepam 0.5 mg tablet 0.5 mg PO Q6H PRN (Reason: Nausea) lidocaine 5 % ointment 1 applic topical DAILY PRN (Reason: Pain) naloxone 4 mg/actuation spray,non-aerosol 4 mg intranasal Q2M PRN (Reason: overdose) Rx Instructions: spray 1 dose into ONE nostril; alternate nostrils w each dose until help arrives polyethylene glycol 3350 [Miralax] 17 gram powder in packet 17 g PO BEDTIME cefdinir 300 mg capsule 300 mg PO BID Qty: 30 1RF lisinopril 20 mg tablet 10 mg PO DAILY hydrochlorothiazide 25 mg tablet 25 mg PO QAM metformin 500 mg tablet extended release 24 hr 500 mg PO DAILY tamsulosin 0.4 mg capsule 0.4 mg PO BEDTIME Discharge Orders: Discharge ED (Routine); Ordered 05/25/22 Ordered By: Dilan Bryant Referrals: Linda Escalante MD [Primary Care Provider] - Patient Instructions: COVID-19 (Coronavirus Disease 2019) (ED) Activity Restrictions/Additional Instructions: Come back to the emergency room if your symptoms worsen, have any shortness of breath, fever/chills, dehydration, inability tolerate food or drinks, any difficulty breathing, or any new or concerning complaints. Coding Level of Care Code ED Ring Rolling Machine Operator for Chg Fwd Exam Comprehensive
[2022-05-25 16:49] LABS: Adenovirus Not Detected (NOT DETECT); Chlamydia Pneumoniae Not Detected (NOT DETECT); Coronavirus 229E,HKU1,NL63,OC4 Not Detected (NOT DETECT); Human Metapneumovirus Not Detected (NOT DETECT); Human Rhinovirus/Enterovirus Not Detected (NOT DETECT); Influenza A Not Detected (NOT DETECT); Influenza A H1 Not Detected (NOT DETECT); Influenza A H1-2009 Not Detected (NOT DETECT); Influenza A H3 Not Detected (NOT DETECT); Influenza B Not Detected (NOT DETECT); Mycoplasma Pneumoniae Not Detected (NOT DETECT); Parainfluenza Virus Type 1 Not Detected (NOT DETECT); Parainfluenza Virus Type 2 Not Detected (NOT DETECT); Parainfluenza Virus Type 3 Not Detected (NOT DETECT); Parainfluenza Virus Type 4 Not Detected (NOT DETECT); Respiratory Syncytial Virus A Not Detected (NOT DETECT); Respiratory Syncytial Virus B Not Detected (NOT DETECT); SARS-COV-2 Detected (NOT DETECT)
[2022-05-25 16:52] LABS: Influenza A Not Detected (NOT DETECT); Influenza A H1 Not Detected (NOT DETECT); Influenza A H1-2009 Not Detected (NOT DETECT); Influenza A H3 Not Detected (NOT DETECT); Influenza B Not Detected (NOT DETECT); Results from Genmark
[2022-05-25 17:29] LABS: Anion Gap 14.6 (5-19); Blood Urea Nitrogen 30 mg/dL (8-23); Carbon Dioxide 24 mmol/L (22-29); Chloride 98 mmol/L (98-107); Creatinine Clr Calc Pharmacy 79.2042; Glucose 115 mg/dL (65-115); Osmolality Calculated 281 mOsm/kg (285-295); Potassium 4.6 mmol/L (3.5-5.1); Sodium 132 mmol/L (136-145)
--- NOTE | 2022-05-25 17:31 | ECG_ITS ---
[facility] Test Date: 2022-05-25 Pat Name: Yusuf Tan Department: Room: Gender: Male Online Merchant: : 1945 Requested By: Dilan Bryant Order Number: [id number] Anderson MD: Melquiades Gloria M.D. Measurements Intervals [place] Rate: 50 P: -52 [place]: 180 QRS: -49 QRSD: 146 T: 22 QT: 475 QTc: 435 Interpretive Statements SINUS BRADYCARDIA RIGHT BUNDLE BRANCH BLOCK [120+ ms QRS DURATION, UPRIGHT V1, 40+ ms S IN I/aVL/V4/V5/V6] LEFT ANTERIOR FASCICULAR BLOCK [QRS AXIS <= -45, QR IN I, RS IN II] Compared to ECG 05/25/2022 15:07:31 First degree AV block no longer present Myocardial infarct finding no longer present Electronically Signed On 05-25-2022 18:11:52 CDT by Melquiades Gloria M.D. [email or web address].[employer]/store/OM/[id number]
[2022-05-25 17:42] LABS: Add Urine Culture? No; Add Urine Microscopic? YES; Bacteria Urine 1+ /hpf; Bilirubin Urine Neg (Negative); Blood Urine Neg (Negative); Glucose Urine UA Norm (Normal); Ketones Urine Negative (Negative); Leukocyte Esterase Urine Trace (Negative); Nitrate Urine Negative (Negative); Protein Urine Neg (Negative); Specific Gravity, Urine 1.025 (1.005-1.030); Urine Appearance Clear (CLEAR); Urine Color Yellow (Yellow); Urobilinogen Urine Norm (Negative); pH Urine 5 (5-7)
[2022-05-25 17:47] LABS: Troponin(5th) Baseline 49 ng/L (0-15)
--- NOTE | 2022-05-25 17:59 | XR_ITS ---
WS: [id number] XR chest 1V portable [id number] REASON FOR EXAM: dyspnea FINDINGS: Thoracic aorta is calcified and moderately tortuous and mildly ectatic. The heart is not enlarged. Calcified granulomatous disease in both hemithoraces. No acute pulmonary parenchymal or pleural abnormality is identified. Significant degenerative arthropathic change in the right shoulder and to a lesser extent in the left shoulder. Moderate degenerative spondylosis in the mid and lower thoracic spine. XR/XR chest 1V portable [id number] IMPRESSION: No acute chest abnormality.
[2022-05-25 18:59] VITALS: BP 118/55; PULSE 51; RESP 18; O2SAT 95
[2022-05-25 19:59] LABS: Troponin 5 2HR 43.77 ng/L (0-15)
[2022-05-25 20:03] LABS: Troponin 5 2HR Delta -5.23 ABS# (0-10)
[2022-05-25 20:35] VITALS: BP 118/67; PULSE 52; RESP 23; TEMP 36.9; O2SAT 95
== END 2022-05-25 20:47 | disposition home or self-care (01) ==
PROVIDERS: Family Medicine; Emergency Provider Emergency Medicine; PCP Family Medicine
DX: U07.1 COVID-19 (principal); Z79.84 Long term (current) use of oral hypoglycemic drugs; Z79.02 Long term (current) use of antithrombotics/antiplatelets; Z79.82 Long term (current) use of aspirin; I25.10 Atherosclerotic heart disease of native coronary artery without angina pectoris; E11.9 Type 2 diabetes mellitus without complications; I10 Essential (primary) hypertension; Z87.891 Personal history of nicotine dependence
CPT/HCPCS: 70450; 71045; 80048; 80053; 81001; 83605; 84484; 85025; 87631; 87635; 93005; 99285

== ENCOUNTER → 2022-06-15 09:06 | Outpatient (BNVA) | payer OTHER, SELFPAY | PROVIDERS: PCP Family Medicine; Visit Provider Anesthesiology Pain Medicine | DX: M25.512 Pain in left shoulder (principal); M25.511 Pain in right shoulder; M79.601 Pain in right arm; M79.602 Pain in left arm; M54.2 Cervicalgia; S78.119A Complete traumatic amputation at level between unspecified hip and knee, initial encounter; M19.90 Unspecified osteoarthritis, unspecified site; Z79.899 Other long term (current) drug therapy; Y93.9 Activity, unspecified | CPT/HCPCS: 99214 ==

== ENCOUNTER → 2022-07-16 08:51 | Outpatient (BNVA) | payer OTHER, SELFPAY | PROVIDERS: PCP Family Medicine; Visit Provider Anesthesiology Pain Medicine | DX: M54.2 Cervicalgia (principal); M25.511 Pain in right shoulder; M25.512 Pain in left shoulder; M54.9 Dorsalgia, unspecified; M19.90 Unspecified osteoarthritis, unspecified site; S78.119A Complete traumatic amputation at level between unspecified hip and knee, initial encounter; Z79.899 Other long term (current) drug therapy; Z87.891 Personal history of nicotine dependence | CPT/HCPCS: 99213 ==

== ENCOUNTER → 2022-08-13 08:57 | Outpatient (BNVA) | payer OTHER, SELFPAY | PROVIDERS: PCP Family Medicine; Visit Provider Anesthesiology Pain Medicine | DX: M19.90 Unspecified osteoarthritis, unspecified site (principal); S78.119A Complete traumatic amputation at level between unspecified hip and knee, initial encounter; M54.9 Dorsalgia, unspecified; M54.2 Cervicalgia; M25.511 Pain in right shoulder; M25.512 Pain in left shoulder; M79.601 Pain in right arm; M79.602 Pain in left arm; Z79.899 Other long term (current) drug therapy; Z87.891 Personal history of nicotine dependence; X58.XXXA Exposure to other specified factors, initial encounter | CPT/HCPCS: 99213; 99214 ==

== ENCOUNTER → 2022-09-15 08:47 | Outpatient (BNVA) | payer OTHER, SELFPAY | PROVIDERS: PCP Family Medicine; Visit Provider Anesthesiology Pain Medicine | DX: M54.2 Cervicalgia (principal); M25.511 Pain in right shoulder; M25.512 Pain in left shoulder; M19.90 Unspecified osteoarthritis, unspecified site; S78.119A Complete traumatic amputation at level between unspecified hip and knee, initial encounter; X58.XXXA Exposure to other specified factors, initial encounter; Z79.899 Other long term (current) drug therapy | CPT/HCPCS: 99214 ==

== ENCOUNTER 2022-09-22 10:35 | Oncology outpatient (recurring) (ONCR) | payer OTHER, SELFPAY ==
[2022-09-22 12:36] LABS: Basophils # 0.1 10^3/uL (0.0-0.1); Basophils % 1.2 %; Eosinophils # 0.5 10^3/uL (0.0-0.8); Eosinophils % 6.3 %; Hematocrit 35.8 % (42.0-52.0); Hemoglobin 11.7 g/dL (11.7-16.6); Lymphocytes # 1.8 10^3/uL (0.8-4.8); Mean Corpuscular HGB Conc 32.7 g/dL (30.0-36.0); Mean Corpuscular Volume 88.6 fl (80-94); Mean Platelet Volume 9.3 fL (7.4-10.4); Monocytes # 0.7 10^3/uL (0.2-0.9); Monocytes % 8.4 %; Neutrophils # 5.21 10^3/uL (1.8-7.7); Neutrophils % 62.1 %; Nucleated Red Blood Cells % 0 %; Platelet Count 234 10^3/cmm (130-400); Red Blood Count 4.04 10^6/uL (4.1-5.3); Red Cell Distribution Width 14.8 % (12.1-15.1); White Blood Count 8.4 10^3/uL (4.0-10.0)
[2022-09-22 12:51] LABS: LAB Peripheral Smear Sent for Review
[2022-09-22 13:11] LABS: Alanine Aminotransferase 11 U/L (0-41); Albumin Level 4.4 g/dL (3.5-5.2); Alkaline Phosphatase 54 U/L (40-130); Anion Gap 17.3 (5-19); Aspartate Amino Transferase 18 U/L (0-40); Blood Urea Nitrogen 23 mg/dL (8-23); Calcium 10.3 mg/dL (8.5-10.5); Carbon Dioxide 23 mmol/L (22-29); Chloride 101 mmol/L (98-107); Creatinine Clr Calc Pharmacy 89.1048; Ferritin 52 ng/mL (30-400); Glucose 130 mg/dL (65-115); Iron 41 ug/dL (59-158); Lactate Dehydrogenase 144 U/L (135-225); Osmolality Calculated 289 mOsm/kg (285-295); Percent Saturation 12.9 % (20-50); Potassium 4.3 mmol/L (3.5-5.1); Sodium 137 mmol/L (136-145); Total Bilirubin 0.2 mg/dL (0.15-1.2); Total Iron Binding Capacity 316 mcg/dl; Total Protein 7.4 g/dL (6.6-8.7); Unsaturated Iron Binding 275 ug/dL (112-347)
[2022-09-23 12:04] LABS: KAPPA LIGHT CHAIN, FREE, SERUM 36.7 mg/L (3.3-19.4); KAPPA/LAMBDA LIGHT CHAINS FREE 1.36 (0.26-1.65); LAMBDA LIGHT CHAIN, FREE, SERU 26.9 mg/L (5.7-26.3)
[2022-09-24 10:25] LABS: ALBUMIN 3.9 g/dL (3.8-4.8); ALPHA 1 GLOBULIN 0.3 g/dL (0.2-0.3); ALPHA 2 GLOBULIN 0.8 g/dL (0.5-0.9); BETA 1 GLOBULIN 0.4 g/dL (0.4-0.6); BETA 2 GLOBULIN 0.4 g/dL (0.2-0.5); GAMMA GLOBULIN 1.2 g/dL (0.8-1.7)
[2022-09-29 14:33] LABS: Erythrocyte Sedimentation Rate 9 mm/hr (0-10)
== END 2022-10-13 23:59 | disposition home or self-care (01) ==
PROVIDERS: PCP Family Medicine; Visit Provider Internal Medicine Medical Oncology
DX: D64.9 Anemia, unspecified (principal); Z87.891 Personal history of nicotine dependence
CPT/HCPCS: 36415; 80053; 82728; 83010; 83540; 83550; 83615; 83883; 84155; 84165; 85025; 85045; 85651; 86140; 99204

== ENCOUNTER → 2022-10-12 09:04 | Outpatient (BNVA) | payer OTHER, SELFPAY | PROVIDERS: PCP Family Medicine; Visit Provider Anesthesiology Pain Medicine | DX: M19.90 Unspecified osteoarthritis, unspecified site (principal); S78.119A Complete traumatic amputation at level between unspecified hip and knee, initial encounter; M54.9 Dorsalgia, unspecified; M54.2 Cervicalgia; M25.511 Pain in right shoulder; M25.512 Pain in left shoulder; M79.601 Pain in right arm; M79.602 Pain in left arm; X58.XXXA Exposure to other specified factors, initial encounter; Z79.899 Other long term (current) drug therapy | CPT/HCPCS: 99214 ==

== ENCOUNTER 2022-11-06 08:28 | Oncology outpatient (recurring) (ONCR) | payer OTHER, SELFPAY ==
[2022-11-06 09:23] LABS: Basophils # 0.1 10^3/uL (0.0-0.1); Basophils % 0.6 %; Eosinophils # 0.2 10^3/uL (0.0-0.8); Eosinophils % 1.7 %; Hematocrit 25.8 % (42.0-52.0); Hemoglobin 8.2 g/dL (11.7-16.6); Lymphocytes # 2.1 10^3/uL (0.8-4.8); Lymphocytes % 15.5 %; Mean Corpuscular HGB Conc 31.8 g/dL (30.0-36.0); Mean Corpuscular Hemoglobin 29.6 pg (28.0-34.0); Mean Corpuscular Volume 93.1 fl (80-94); Mean Platelet Volume 9.6 fL (7.4-10.4); Monocytes % 7.2 %; Neutrophils # 9.88 10^3/uL (1.8-7.7); Neutrophils % 74.4 %; Nucleated Red Blood Cells % 0 %; Platelet Count 215 10^3/cmm (130-400); Red Blood Count 2.77 10^6/uL (4.1-5.3); White Blood Count 13.3 10^3/uL (4.0-10.0)
[2022-11-06 09:45] LABS: Ferritin 37 ng/mL (30-400); Iron 34 ug/dL (59-158); Percent Saturation 11.2 % (20-50); Total Iron Binding Capacity 303 mcg/dl; Unsaturated Iron Binding 269 ug/dL (112-347)
== END 2022-11-10 23:59 | disposition home or self-care (01) ==
LOC: ONCMED 08:28
PROVIDERS: PCP Family Medicine; Visit Provider Internal Medicine Medical Oncology
DX: D64.9 Anemia, unspecified (principal); D72.829 Elevated white blood cell count, unspecified
CPT/HCPCS: 36415; 82728; 83540; 83550; 85025

== ENCOUNTER → 2022-11-10 08:48 | Outpatient (BNVA) | payer OTHER, SELFPAY | PROVIDERS: PCP Family Medicine; Visit Provider Anesthesiology Pain Medicine | DX: S78.119A Complete traumatic amputation at level between unspecified hip and knee, initial encounter (principal); M19.90 Unspecified osteoarthritis, unspecified site; M54.2 Cervicalgia; M25.511 Pain in right shoulder; M25.512 Pain in left shoulder; M79.601 Pain in right arm; M79.602 Pain in left arm; X58.XXXA Exposure to other specified factors, initial encounter; Z79.899 Other long term (current) drug therapy | CPT/HCPCS: 99214 ==

== ENCOUNTER 2022-12-01 11:00 | Oncology outpatient (recurring) (ONCR) | payer OTHER, SELFPAY ==
[2022-11-24] MEDS: sodium chloride 0.9% 250 ML 75 ML IV (11:15)
[2022-11-24] MEDS: ferric carboxy (IVPB) 750 MG in sodium chloride 0.9% (100 ml) 100 ML 345 MG IV (11:27)
[2022-11-24 12:17] VITALS: BP 94/60; PULSE 59; RESP 16; TEMP 36.3; O2SAT 95
[2022-12-01 10:44] VITALS: BP 97/59; PULSE 55; RESP 16; TEMP 36.3; O2SAT 97
[2022-12-01] MEDS: sodium chloride 0.9% 250 ML 75 ML IV (10:49)
[2022-12-01] MEDS: ferric carboxy (IVPB) 750 MG in sodium chloride 0.9% (100 ml) 100 ML 345 MG IV (11:21)
[2022-12-01 11:55] VITALS: BP 104/60; PULSE 95; RESP 16; TEMP 36.4; O2SAT 96
== END 2022-12-11 23:59 | disposition home or self-care (01) ==
PROVIDERS: PCP Family Medicine; Visit Provider Internal Medicine Medical Oncology
DX: D50.8 Other iron deficiency anemias (principal); Z79.899 Other long term (current) drug therapy
CPT/HCPCS: 96365; J1439; J7050

== ENCOUNTER → 2022-12-03 10:10 | Outpatient (BNVA) | payer OTHER, SELFPAY | PROVIDERS: PCP Family Medicine; Visit Provider Urology | DX: N40.1 Benign prostatic hyperplasia with lower urinary tract symptoms (principal); N13.8 Other obstructive and reflux uropathy; N39.0 Urinary tract infection, site not specified; Z87.448 Personal history of other diseases of urinary system | CPT/HCPCS: 51798; 81003; 99213 ==

== ENCOUNTER → 2022-12-09 08:57 | Outpatient (BNVA) | payer OTHER, SELFPAY | PROVIDERS: PCP Family Medicine; Visit Provider Anesthesiology Pain Medicine | DX: M54.9 Dorsalgia, unspecified (principal); M54.2 Cervicalgia; M25.511 Pain in right shoulder; M25.512 Pain in left shoulder; M79.601 Pain in right arm; M79.602 Pain in left arm; W40.8XXA Explosion of other specified explosive materials, initial encounter; D50.8 Other iron deficiency anemias; S78.119A Complete traumatic amputation at level between unspecified hip and knee, initial encounter; Z79.899 Other long term (current) drug therapy; M19.90 Unspecified osteoarthritis, unspecified site | CPT/HCPCS: 99213 ==

== ENCOUNTER 2023-01-05 10:58 | Oncology outpatient (recurring) (ONCR) | payer OTHER, SELFPAY ==
[2023-01-05 12:05] LABS: Basophils # 0.1 10^3/uL (0.0-0.1); Basophils % 1.4 %; Eosinophils # 0.6 10^3/uL (0.0-0.8); Eosinophils % 8.6 %; Hematocrit 30.4 % (42.0-52.0); Hemoglobin 9.7 g/dL (11.7-16.6); Lymphocytes # 1.5 10^3/uL (0.8-4.8); Lymphocytes % 20.2 %; Mean Corpuscular HGB Conc 31.9 g/dL (30.0-36.0); Mean Corpuscular Hemoglobin 30.9 pg (28.0-34.0); Mean Corpuscular Volume 96.8 fl (80-94); Mean Platelet Volume 9.3 fL (7.4-10.4); Monocytes # 0.6 10^3/uL (0.2-0.9); Monocytes % 8.6 %; Neutrophils # 4.37 10^3/uL (1.8-7.7); Neutrophils % 60.9 %; Nucleated Red Blood Cells % 0 %; Platelet Count 262 10^3/cmm (130-400); Red Blood Count 3.14 10^6/uL (4.1-5.3); Red Cell Distribution Width 13.5 % (12.1-15.1); White Blood Count 7.2 10^3/uL (4.0-10.0)
[2023-01-05 12:28] LABS: Ferritin 128 ng/mL (30-400); Iron 42 ug/dL (59-158); Percent Saturation 14.4 % (20-50); Total Iron Binding Capacity 291 mcg/dl; Unsaturated Iron Binding 249 ug/dL (112-347)
== END 2023-01-10 23:59 | disposition home or self-care (01) ==
PROVIDERS: PCP Family Medicine; Visit Provider Internal Medicine Medical Oncology
DX: D64.9 Anemia, unspecified (principal); Z87.891 Personal history of nicotine dependence
CPT/HCPCS: 36415; 82728; 83540; 83550; 85025; 99214

== ENCOUNTER → 2023-01-07 08:53 | Outpatient (BNVA) | payer OTHER, SELFPAY | PROVIDERS: PCP Family Medicine; Visit Provider Anesthesiology Pain Medicine | DX: M19.90 Unspecified osteoarthritis, unspecified site (principal); M54.9 Dorsalgia, unspecified; M54.2 Cervicalgia; M25.511 Pain in right shoulder; M25.512 Pain in left shoulder; S78.111A Complete traumatic amputation at level between right hip and knee, initial encounter; S78.112A Complete traumatic amputation at level between left hip and knee, initial encounter; W40.8XXA Explosion of other specified explosive materials, initial encounter; M79.601 Pain in right arm; M79.602 Pain in left arm; D50.8 Other iron deficiency anemias; Z79.899 Other long term (current) drug therapy | CPT/HCPCS: 99213; 99214 ==

== ENCOUNTER 2023-01-14 09:58 | Oncology outpatient (recurring) (ONCR) | payer OTHER, SELFPAY ==
[2023-01-14 10:30] VITALS: BP 98/58; PULSE 59; RESP 16; TEMP 36.4; O2SAT 97
[2023-01-14] MEDS: ferric carboxy (IVPB) 750 MG in sodium chloride 0.9% (100 ml) 100 ML 345 MG IV (10:37)
[2023-01-14 11:35] VITALS: BP 98/55; PULSE 57; RESP 18; TEMP 36.6; O2SAT 99
== END 2023-02-10 23:59 | disposition home or self-care (01) ==
PROVIDERS: PCP Family Medicine; Visit Provider Internal Medicine Medical Oncology
DX: D50.8 Other iron deficiency anemias (principal)
CPT/HCPCS: 96365; J1439

== ENCOUNTER → 2023-02-04 08:42 | Outpatient (BNVA) | payer OTHER, SELFPAY | PROVIDERS: PCP Family Medicine; Visit Provider Anesthesiology Pain Medicine | DX: M54.9 Dorsalgia, unspecified (principal); M25.512 Pain in left shoulder; M25.511 Pain in right shoulder; M79.601 Pain in right arm; M79.602 Pain in left arm; S78.111A Complete traumatic amputation at level between right hip and knee, initial encounter; S78.112A Complete traumatic amputation at level between left hip and knee, initial encounter; W40.8XXA Explosion of other specified explosive materials, initial encounter | CPT/HCPCS: 99214 ==

== ENCOUNTER 2023-02-23 13:15 | Oncology outpatient (recurring) (ONCR) | payer OTHER, SELFPAY ==
[2023-02-23 14:10] LABS: Basophils # 0.1 10^3/uL (0.0-0.1); Eosinophils # 0.7 10^3/uL (0.0-0.8); Hematocrit 35.9 % (42.0-52.0); Hemoglobin 11.9 g/dL (11.7-16.6); Lymphocytes # 1.8 10^3/uL (0.8-4.8); Lymphocytes % 19.4 %; Mean Corpuscular HGB Conc 33.1 g/dL (30.0-36.0); Mean Corpuscular Hemoglobin 29.8 pg (28.0-34.0); Mean Corpuscular Volume 89.8 fl (80-94); Mean Platelet Volume 9.1 fL (7.4-10.4); Monocytes # 0.8 10^3/uL (0.2-0.9); Neutrophils # 5.76 10^3/uL (1.8-7.7); Neutrophils % 62.4 %; Nucleated Red Blood Cells % 0 %; Platelet Count 199 10^3/cmm (130-400); Red Cell Distribution Width 12.4 % (12.1-15.1); White Blood Count 9.2 10^3/uL (4.0-10.0)
[2023-02-23 14:11] VITALS: BP 113/61; PULSE 54; RESP 16; TEMP 36.4; O2SAT 96
[2023-02-23 14:38] LABS: Ferritin 185 ng/mL (30-400); Iron 48 ug/dL (59-158); Percent Saturation 18.6 % (20-50); Total Iron Binding Capacity 257 mcg/dl; Unsaturated Iron Binding 209 ug/dL (112-347)
== END 2023-03-12 23:59 | disposition home or self-care (01) ==
PROVIDERS: Nurse Practitioner Family; PCP Family Medicine; Visit Provider Internal Medicine Medical Oncology
DX: D64.9 Anemia, unspecified (principal); Z87.891 Personal history of nicotine dependence
CPT/HCPCS: 36415; 82728; 83540; 83550; 85025; 99213

== ENCOUNTER → 2023-03-03 11:51 | Outpatient (BNVA) | payer OTHER, SELFPAY | PROVIDERS: PCP Family Medicine; Visit Provider Internal Medicine Medical Oncology | DX: D64.9 Anemia, unspecified (principal) | CPT/HCPCS: 82274 ==

== ENCOUNTER → 2023-03-04 09:06 | Outpatient (BNVA) | payer OTHER, SELFPAY | PROVIDERS: PCP Family Medicine; Visit Provider Anesthesiology Pain Medicine | DX: M54.9 Dorsalgia, unspecified (principal); M54.2 Cervicalgia; M19.90 Unspecified osteoarthritis, unspecified site; M25.511 Pain in right shoulder; M25.512 Pain in left shoulder; S78.111A Complete traumatic amputation at level between right hip and knee, initial encounter; S78.112A Complete traumatic amputation at level between left hip and knee, initial encounter; W40.8XXA Explosion of other specified explosive materials, initial encounter | CPT/HCPCS: 99214 ==

== ENCOUNTER → 2023-03-25 15:16 | Outpatient (BNVA) | payer OTHER, SELFPAY | PROVIDERS: PCP Family Medicine; Visit Provider Nurse Practitioner Family | DX: L85.3 Xerosis cutis (principal); D69.2 Other nonthrombocytopenic purpura; L57.0 Actinic keratosis; D22.5 Melanocytic nevi of trunk; L82.1 Other seborrheic keratosis; L57.8 Other skin changes due to chronic exposure to nonionizing radiation; Z85.828 Personal history of other malignant neoplasm of skin; Z87.891 Personal history of nicotine dependence | CPT/HCPCS: 17000; 17003; 99213 ==

== ENCOUNTER → 2023-03-31 09:06 | Outpatient (BNVA) | payer OTHER, SELFPAY | PROVIDERS: PCP Family Medicine; Visit Provider Anesthesiology Pain Medicine | DX: M19.90 Unspecified osteoarthritis, unspecified site (principal); M25.511 Pain in right shoulder; M25.512 Pain in left shoulder; S78.111A Complete traumatic amputation at level between right hip and knee, initial encounter; S78.112A Complete traumatic amputation at level between left hip and knee, initial encounter; W40.8XXA Explosion of other specified explosive materials, initial encounter; M54.9 Dorsalgia, unspecified; M54.2 Cervicalgia; Z79.899 Other long term (current) drug therapy | CPT/HCPCS: 99214 ==

== ENCOUNTER → 2023-04-29 08:52 | Outpatient (BNVA) | payer OTHER, SELFPAY | PROVIDERS: PCP Family Medicine; Visit Provider Anesthesiology Pain Medicine | DX: M19.90 Unspecified osteoarthritis, unspecified site (principal); M54.2 Cervicalgia; Z79.899 Other long term (current) drug therapy; M54.50 Low back pain, unspecified; M25.511 Pain in right shoulder; M25.512 Pain in left shoulder; X58.XXXA Exposure to other specified factors, initial encounter; S78.111A Complete traumatic amputation at level between right hip and knee, initial encounter; S78.112A Complete traumatic amputation at level between left hip and knee, initial encounter | CPT/HCPCS: 99214 ==

== ENCOUNTER → 2023-06-08 09:49 | Outpatient (BNVA) | payer OTHER, SELFPAY | PROVIDERS: PCP Family Medicine; Visit Provider Anesthesiology Pain Medicine | DX: M19.90 Unspecified osteoarthritis, unspecified site (principal); M54.9 Dorsalgia, unspecified; M54.2 Cervicalgia; Z79.899 Other long term (current) drug therapy; M25.511 Pain in right shoulder; M25.512 Pain in left shoulder; S78.111A Complete traumatic amputation at level between right hip and knee, initial encounter; S78.112A Complete traumatic amputation at level between left hip and knee, initial encounter; X58.XXXA Exposure to other specified factors, initial encounter | CPT/HCPCS: 99214 ==

== ENCOUNTER 2023-06-16 13:34 | Oncology outpatient (recurring) (ONCR) | payer OTHER, SELFPAY ==
[2023-06-16 13:42] VITALS: BP 135/69; PULSE 57; RESP 16; TEMP 36.2; O2SAT 93
[2023-06-16 14:03] LABS: Basophils # 0.1 10^3/uL (0.0-0.1); Basophils % 1.2 %; Eosinophils # 0.6 10^3/uL (0.0-0.8); Eosinophils % 7.3 %; Hematocrit 38.4 % (37-53); Lymphocytes # 1.6 10^3/uL (0.8-4.8); Lymphocytes % 18.3 %; Mean Corpuscular HGB Conc 33.1 g/dL (30-55); Mean Corpuscular Hemoglobin 29.4 pg (27-33); Mean Corpuscular Volume 88.9 fl (82-101); Mean Platelet Volume 9.3 fL (7.4-10.4); Monocytes # 0.7 10^3/uL (0.2-0.9); Monocytes % 7.8 %; Neutrophils # 5.65 10^3/uL (1.8-7.7); Neutrophils % 65.2 %; Nucleated Red Blood Cells % 0 %; Platelet Count 211 10^3/cmm (157-399); Red Blood Count 4.32 10^6/uL (3.85-5.65); Red Cell Distribution Width 13.2 % (12.1-15.1); White Blood Count 8.67 10^3/uL (3.29-11.43)
[2023-06-16 14:22] LABS: Alanine Aminotransferase 14 U/L (0-41); Albumin Level 4.2 g/dL (3.5-5.2); Alkaline Phosphatase 67 U/L (40-130); Anion Gap 16.3 (5-19); Aspartate Amino Transferase 18 U/L (0-40); Blood Urea Nitrogen 33 mg/dL (8-23); Calcium 9.3 mg/dL (8.5-10.5); Carbon Dioxide 24 mmol/L (22-29); Chloride 101 mmol/L (98-107); Ferritin 78 ng/mL (30-400); Glucose 207 mg/dL (65-115); Iron 56 ug/dL (59-158); Osmolality Calculated 297 mOsm/kg (285-295); Percent Saturation 22.2 % (20-50); Potassium 4.3 mmol/L (3.5-5.1); Sodium 137 mmol/L (136-145); Total Bilirubin 0.4 mg/dL (0.15-1.2); Total Iron Binding Capacity 252 mcg/dl; Total Protein 7.2 g/dL (6.6-8.7); Unsaturated Iron Binding 196 ug/dL (112-347)
== END 2023-07-13 23:59 | disposition home or self-care (01) ==
PROVIDERS: Nurse Practitioner Family; PCP Family Medicine; Visit Provider Internal Medicine Medical Oncology
DX: D64.9 Anemia, unspecified (principal); Z87.891 Personal history of nicotine dependence; Z79.899 Other long term (current) drug therapy
CPT/HCPCS: 36415; 80053; 82728; 83540; 83550; 85025; 99213

== ENCOUNTER → 2023-07-08 08:46 | Outpatient (BNVA) | payer OTHER, SELFPAY | PROVIDERS: PCP Family Medicine; Visit Provider Anesthesiology Pain Medicine | DX: Z79.899 Other long term (current) drug therapy; M25.511 Pain in right shoulder; M25.512 Pain in left shoulder; S78.111A Complete traumatic amputation at level between right hip and knee, initial encounter; S78.112A Complete traumatic amputation at level between left hip and knee, initial encounter; X58.XXXA Exposure to other specified factors, initial encounter; M54.9 Dorsalgia, unspecified | CPT/HCPCS: 99214 ==

== ENCOUNTER → 2023-07-29 10:38 | Outpatient (BNVA) | payer OTHER, SELFPAY | PROVIDERS: PCP Family Medicine; Visit Provider Anesthesiology Pain Medicine | DX: M19.90 Unspecified osteoarthritis, unspecified site (principal); Z79.899 Other long term (current) drug therapy; M25.511 Pain in right shoulder; M25.512 Pain in left shoulder; S78.112A Complete traumatic amputation at level between left hip and knee, initial encounter; S78.111A Complete traumatic amputation at level between right hip and knee, initial encounter; X58.XXXA Exposure to other specified factors, initial encounter | CPT/HCPCS: 99214 ==

== ENCOUNTER → 2023-08-26 10:38 | Outpatient (BNVA) | payer OTHER, SELFPAY | PROVIDERS: PCP Family Medicine; Visit Provider Anesthesiology Pain Medicine | DX: M19.90 Unspecified osteoarthritis, unspecified site (principal); Z79.899 Other long term (current) drug therapy; S78.111A Complete traumatic amputation at level between right hip and knee, initial encounter; S78.112A Complete traumatic amputation at level between left hip and knee, initial encounter; M25.511 Pain in right shoulder; M25.512 Pain in left shoulder; X58.XXXA Exposure to other specified factors, initial encounter; M54.9 Dorsalgia, unspecified; M54.2 Cervicalgia | CPT/HCPCS: 99214 ==

== ENCOUNTER 2023-09-21 13:04 | Oncology outpatient (recurring) (ONCR) | payer OTHER, SELFPAY ==
[2023-09-21 13:20] VITALS: BP 135/79; PULSE 75; RESP 16; TEMP 36.2; O2SAT 95
[2023-09-21 13:25] LABS: Basophils # 0.1 10^3/uL (0.0-0.1); Basophils % 1.1 %; Eosinophils # 0.6 10^3/uL (0.0-0.8); Eosinophils % 6.8 %; Hematocrit 41.3 % (37-53); Lymphocytes # 1.9 10^3/uL (0.8-4.8); Lymphocytes % 20.1 %; Mean Corpuscular HGB Conc 33.9 g/dL (30-55); Mean Corpuscular Hemoglobin 29.9 pg (27-33); Mean Corpuscular Volume 88.1 fl (82-101); Mean Platelet Volume 9.3 fL (7.4-10.4); Monocytes # 0.8 10^3/uL (0.2-0.9); Monocytes % 8.8 %; Neutrophils # 5.87 10^3/uL (1.8-7.7); Neutrophils % 62.9 %; Nucleated Red Blood Cells % 0 %; Platelet Count 208 10^3/cmm (157-399); Red Blood Count 4.69 10^6/uL (3.85-5.65); Red Cell Distribution Width 14.2 % (12.1-15.1); White Blood Count 9.32 10^3/uL (3.29-11.43)
[2023-09-21 13:41] LABS: Alanine Aminotransferase 16 U/L (0-41); Albumin Level 4.2 g/dL (3.5-5.2); Alkaline Phosphatase 78 U/L (40-130); Anion Gap 17.3 (5-19); Aspartate Amino Transferase 18 U/L (0-40); Blood Urea Nitrogen 29 mg/dL (8-23); Carbon Dioxide 23 mmol/L (22-29); Chloride 101 mmol/L (98-107); Ferritin 130 ng/mL (30-400); Globulin 3.6 g/dL (1.3-4.6); Glucose 196 mg/dL (65-115); Iron 68 ug/dL (59-158); Osmolality Calculated 295 mOsm/kg (285-295); Percent Saturation 25.7 % (20-50); Potassium 4.3 mmol/L (3.5-5.1); Sodium 137 mmol/L (136-145); Total Bilirubin 0.7 mg/dL (0.15-1.2); Total Iron Binding Capacity 264 mcg/dl; Total Protein 7.8 g/dL (6.6-8.7); Unsaturated Iron Binding 196 ug/dL (112-347)
== END 2023-10-13 23:59 | disposition home or self-care (01) ==
LOC: ONCMED 13:05
PROVIDERS: Nurse Practitioner Family; PCP Family Medicine; Visit Provider Internal Medicine Medical Oncology
DX: D64.9 Anemia, unspecified (principal); Z87.891 Personal history of nicotine dependence; Z79.899 Other long term (current) drug therapy
CPT/HCPCS: 36415; 80053; 82728; 83540; 83550; 85025; 99213

== ENCOUNTER → 2023-09-23 10:06 | Outpatient (BNVA) | payer OTHER, SELFPAY | PROVIDERS: PCP Family Medicine; Visit Provider Anesthesiology Pain Medicine | DX: M19.90 Unspecified osteoarthritis, unspecified site (principal); M54.9 Dorsalgia, unspecified; M54.2 Cervicalgia; Z79.899 Other long term (current) drug therapy; M25.511 Pain in right shoulder; M25.512 Pain in left shoulder; S78.111A Complete traumatic amputation at level between right hip and knee, initial encounter; S78.112A Complete traumatic amputation at level between left hip and knee, initial encounter; X58.XXXA Exposure to other specified factors, initial encounter | CPT/HCPCS: 99214 ==

== ENCOUNTER → 2023-11-02 08:38 | Outpatient (BNVA) | payer OTHER, SELFPAY | PROVIDERS: PCP Family Medicine; Visit Provider Anesthesiology Pain Medicine | DX: M19.90 Unspecified osteoarthritis, unspecified site (principal); D64.9 Anemia, unspecified; M54.2 Cervicalgia; M25.511 Pain in right shoulder; M25.512 Pain in left shoulder; S78.111A Complete traumatic amputation at level between right hip and knee, initial encounter; S78.112A Complete traumatic amputation at level between left hip and knee, initial encounter; X58.XXXA Exposure to other specified factors, initial encounter; Z79.899 Other long term (current) drug therapy; M54.9 Dorsalgia, unspecified | CPT/HCPCS: 99214 ==

== ENCOUNTER → 2023-12-01 09:08 | Outpatient (BNVA) | payer OTHER, SELFPAY | PROVIDERS: PCP Family Medicine; Visit Provider Anesthesiology Pain Medicine | DX: M19.90 Unspecified osteoarthritis, unspecified site (principal); M54.9 Dorsalgia, unspecified; D64.9 Anemia, unspecified; M54.2 Cervicalgia; Z79.899 Other long term (current) drug therapy; S78.111A Complete traumatic amputation at level between right hip and knee, initial encounter; S78.112A Complete traumatic amputation at level between left hip and knee, initial encounter; M25.511 Pain in right shoulder; M25.512 Pain in left shoulder; X58.XXXA Exposure to other specified factors, initial encounter | CPT/HCPCS: 99214 ==

== ENCOUNTER → 2024-01-03 09:46 | Outpatient (BNVA) | payer OTHER, SELFPAY | PROVIDERS: PCP Family Medicine; Visit Provider Anesthesiology Pain Medicine | DX: M19.90 Unspecified osteoarthritis, unspecified site (principal); Z79.899 Other long term (current) drug therapy; M54.9 Dorsalgia, unspecified; D64.9 Anemia, unspecified; M54.2 Cervicalgia; M25.511 Pain in right shoulder; M25.512 Pain in left shoulder; S78.111A Complete traumatic amputation at level between right hip and knee, initial encounter; S78.112A Complete traumatic amputation at level between left hip and knee, initial encounter; X58.XXXA Exposure to other specified factors, initial encounter | CPT/HCPCS: 99214 ==

== ENCOUNTER → 2024-02-02 09:44 | Outpatient (BNVA) | payer OTHER, SELFPAY | PROVIDERS: PCP Family Medicine; Visit Provider Anesthesiology Pain Medicine | DX: M19.90 Unspecified osteoarthritis, unspecified site (principal); S78.111A Complete traumatic amputation at level between right hip and knee, initial encounter; X58.XXXA Exposure to other specified factors, initial encounter; D64.9 Anemia, unspecified; M25.512 Pain in left shoulder; M54.50 Low back pain, unspecified; S78.112A Complete traumatic amputation at level between left hip and knee, initial encounter; M54.2 Cervicalgia; M25.511 Pain in right shoulder; Z79.899 Other long term (current) drug therapy | CPT/HCPCS: 99214 ==

== ENCOUNTER → 2024-02-29 09:42 | Outpatient (BNVA) | payer OTHER, SELFPAY | PROVIDERS: PCP Family Medicine; Visit Provider Anesthesiology Pain Medicine | DX: S78.111A Complete traumatic amputation at level between right hip and knee, initial encounter; D64.9 Anemia, unspecified; M54.2 Cervicalgia; Z79.899 Other long term (current) drug therapy; M25.511 Pain in right shoulder; M25.512 Pain in left shoulder; X58.XXXA Exposure to other specified factors, initial encounter; M54.50 Low back pain, unspecified | CPT/HCPCS: 99214 ==

== ENCOUNTER → 2024-08-02 15:48 | Outpatient (BNVA) | payer MEDICARE, SELFPAY | PROVIDERS: PCP Family Medicine; Visit Provider Clinical Nurse Specialist Adult Health | DX: N39.0 Urinary tract infection, site not specified (principal); N40.1 Benign prostatic hyperplasia with lower urinary tract symptoms | CPT/HCPCS: 81000; 87086 ==

== ENCOUNTER 2025-02-02 12:05 | Outpatient (CLI) | payer MEDICARE, OTHER, SELFPAY ==
[2025-02-02 12:32] LABS: Basophils # 0.1 10^3/uL (0.0-0.1); Basophils % 1.2 %; Eosinophils # 0.6 10^3/uL (0.0-0.8); Eosinophils % 6.9 %; Hematocrit 39.2 % (37-53); Lymphocytes # 1.7 10^3/uL (0.8-4.8); Lymphocytes % 18.9 %; Mean Corpuscular HGB Conc 33.4 g/dL (30-55); Mean Corpuscular Hemoglobin 30.7 pg (27-33); Mean Corpuscular Volume 91.8 fl (82-101); Mean Platelet Volume 9.3 fL (7.4-10.4); Monocytes # 0.8 10^3/uL (0.2-0.9); Monocytes % 8.8 %; Neutrophils # 5.69 10^3/uL (1.8-7.7); Neutrophils % 63.9 %; Nucleated Red Blood Cells % 0 %; Platelet Count 199 10^3/cmm (157-399); Red Blood Count 4.27 10^6/uL (3.85-5.65); Red Cell Distribution Width 13.2 % (12.1-15.1)
[2025-02-02 12:52] LABS: Estmated Average Glucose 157; Hemoglobin A1C 7.1 % (4.0-6.0)
[2025-02-02 12:56] LABS: Alanine Aminotransferase 11 U/L (0-41); Albumin Level 4.1 g/dL (3.5-5.2); Alkaline Phosphatase 61 U/L (40-130); Anion Gap 17.4 (5-19); Aspartate Amino Transferase 15 U/L (0-40); Blood Urea Nitrogen 32 mg/dL (8-23); Calcium 9.7 mg/dL (8.5-10.5); Carbon Dioxide 21 mmol/L (22-29); Chloride 102 mmol/L (98-107); Chol HDL Ratio 4.28 mg/dL (1.0-5.00); Cholesterol 107 mg/dL (0-200); Ferritin 273 ng/mL (30-400); Globulin 3.2 g/dL (1.3-4.6); Glucose 149 mg/dL (65-115); HDL Cholesterol 25 mg/dL (60-100); Iron 70 ug/dL (59-158); LDL Cholesterol Calculated 44 mg/dL (50-129); LDL HDL Ratio 1.76 RATIO (0.00-3.22); Osmolality Calculated 292 mOsm/kg (285-295); Percent Saturation 29.6 % (20-50); Potassium 4.4 mmol/L (3.5-5.1); Sodium 136 mmol/L (136-145); Thyroid Stimulating Hormone 2.56 uIU/mL (0.27-4.20); Total Bilirubin 0.5 mg/dL (0.15-1.2); Total Iron Binding Capacity 236 mcg/dl; Total Protein 7.3 g/dL (6.6-8.7); Triglycerides 189 mg/dL (0-150); Unsaturated Iron Binding 166 ug/dL (112-347)
[2025-02-02 15:34] LABS: Free T4 Free Thyroxine 1.16 ng/dL (0.82-1.77)
== END 2025-02-02 12:06 | disposition home or self-care (01) ==
LOC: LAB 12:07
PROVIDERS: PCP Family Medicine; Visit Provider Family Medicine
DX: I25.10 Atherosclerotic heart disease of native coronary artery without angina pectoris (principal); E11.65 Type 2 diabetes mellitus with hyperglycemia; D64.9 Anemia, unspecified
CPT/HCPCS: 36415; 80053; 80061; 82728; 83036; 83540; 83550; 84439; 84443; 85025

== ENCOUNTER → 2025-03-26 13:11 | Outpatient (BNVA) | payer MEDICARE, OTHER, SELFPAY | PROVIDERS: PCP Family Medicine; Visit Provider Internal Medicine | DX: I25.10 Atherosclerotic heart disease of native coronary artery without angina pectoris (principal); R07.9 Chest pain, unspecified; I73.9 Peripheral vascular disease, unspecified; E78.5 Hyperlipidemia, unspecified; I10 Essential (primary) hypertension | CPT/HCPCS: 93005; 99204 ==